=== PATIENT | female | born 1970 | race American Indian/Alaskan Native ===

== ENCOUNTER 2016-12-21 20:56 | Emergency (ER) | payer MEDICAID ==
[2016-12-21 20:57] VITALS: BMI 31.3
[2016-12-21 22:35] VITALS: RESP 18
[2016-12-21 22:52] LABS: RBC URINE 8 /hpf (0-3); URINE BACTERIA RARE (<OCC); URINE BILIRUBIN NEGATIVE (NEGATIVE); URINE BLOOD 1+ (NEGATIVE); URINE COLOR Yellow (YELLOW); URINE GLUCOSE (UA) NORMAL (Normal); URINE KETONE NEGATIVE (NEGATIVE); URINE LEUKOCYTE ESTERASE NEG Leu/uL (Negative); URINE PROTEIN NEGATIVE (NEGATIVE); WBC URINE 1 /hpf (0-5)
--- NOTE | 2016-12-21 23:44 | C.PDOC ---
Time Seen by Provider: 12/21/16 22:36 Chief Complaint (Nursing): Female Genitourinary History Per: Patient Onset/Duration Of Symptoms: Days (4) Current Symptoms Are (Timing): Still Present Severity: Moderate Location Of Pain/Discomfort: Suprapubic Quality Of Discomfort: Burning Associated Symptoms: Urinary Symptoms Exacerbating Factors: None Alleviating Factors: None Additional History Per: Prior Records Abnormal Vaginal Bleeding: No Past Medical History Reviewed: Historical Data, Nursing Documentation, Vital Signs Vital Signs: Last Vital Signs Temp 98.2 F 12/21/16 22:31 Pulse 83 12/21/16 22:31 Resp 18 12/21/16 22:31 BP 142/91 H 12/21/16 22:31 Pulse Ox 100 12/21/16 22:31 - Medical History PMH: Asthma Surgical History: No Surg Hx Family History: States: Unknown Family Hx - Social History Hx Tobacco Use: No Hx Alcohol Use: Yes Hx Substance Use: No - Immunization History Hx Tetanus Toxoid Vaccination: Yes Hx Influenza Vaccination: No Hx Pneumococcal Vaccination: Yes Review Of Systems Except As Marked, All Systems Reviewed And Found Negative. Constitutional: Negative for: Fever, Weakness Cardiovascular: Negative for: Chest Pain Respiratory: Negative for: Shortness of Breath Gastrointestinal: Negative for: Vomiting, Diarrhea Genitourinary: Positive for: Dysuria, Frequency. Negative for: Vaginal Discharge, Vaginal Bleeding Musculoskeletal: Negative for: Neck Pain, Back Pain Skin: Negative for: Rash Neurological: Negative for: Weakness, Numbness, Seizures, Altered Mental Status Physical Exam - Physical Exam Appears: Non-toxic, No Acute Distress Skin: Normal Color, Warm, Dry, No Rash Head: Atraumatic, Normacephalic Eye(s): bilateral: PERRL, EOMI Neck: Normal ROM, Supple Cardiovascular: Rhythm Regular Respiratory: Normal Breath Sounds, No Accessory Muscle Use Gastrointestinal/Abdominal: Soft, Tenderness (mild suprapubic), No Guarding, No Rebound Back: No CVA Tenderness Extremity: Normal ROM Neurological/Psych: Oriented x3, Normal Motor, Normal Sensation ED Course And Treatment - Laboratory Results Urine POC: Negative O2 Sat by Pulse Oximetry: 100 Pulse Ox Interpretation: Normal Disposition Counseled Patient/Family Regarding: Studies Performed, Diagnosis, Need For Followup, Rx Given - Disposition Referrals: [facility] at [facility] [Outside] Disposition: HOME/ ROUTINE Disposition Time: 23:44 Condition: STABLE Additional Instructions: Drink plenty of fluids. Follow up in the clinic. Return to the ER if you develop fever, vomiting, worsening of symptoms or if you have any other concerns. Prescriptions: Ciprofloxacin [Cipro] 250 mg PO BID #6 tab Instructions: Dysuria (ED) - Clinical Impression Clinical Impression: UTI symptoms
[2016-12-22 00:09] VITALS: BP 125/82; PULSE 69; TEMP 97.9; O2SAT 97
== END 2016-12-22 00:18 | disposition home or self-care (01) ==
LOC: C.ER 20:56
DX: N39.0 Urinary tract infection, site not specified (principal)

== ENCOUNTER 2017-05-07 13:47 | Emergency (ER) | payer MEDICAID ==
[2017-05-07 13:47] VITALS: BMI 31.3
[2017-05-07 14:13] VITALS: BP 159/89; PULSE 76; RESP 16; TEMP 98; O2SAT 98
[2017-05-07 14:35] LABS: RBC URINE 1 /hpf (0-3); URINE BILIRUBIN NEGATIVE (NEGATIVE); URINE BLOOD NEGATIVE (NEGATIVE); URINE COLOR Yellow (YELLOW); URINE GLUCOSE (UA) NORMAL (Normal); URINE KETONE NEGATIVE (NEGATIVE); URINE LEUKOCYTE ESTERASE TRACE Leu/uL (Negative); URINE PROTEIN NEGATIVE (NEGATIVE); WBC URINE 3 /hpf (0-5)
--- NOTE | 2017-05-07 14:58 | C.PDOC ---
History Of Present Illness 46 year old female presents to the ED for evaluation of nausea for the past several days. She additionally reports her menstrual cycle is late by several days. Pt states she has an appointment schedule with her PCP "soon". She reports some suprapubic pressure, but denies fever, vaginal discharge/bleeding, dysuria/ hematuria, abdominal pain, chest pain, SOB. Time Seen by Provider: 05/07/17 13:55 Chief Complaint (Nursing): Female Genitourinary History Per: Patient History/Exam Limitations: no limitations Onset/Duration Of Symptoms: Days Current Symptoms Are (Timing): Still Present Severity: Mild Past Medical History Reviewed: Historical Data, Nursing Documentation, Vital Signs Vital Signs: Last Vital Signs Temp 98 F 05/07/17 14:12 Pulse 76 05/07/17 14:12 Resp 16 05/07/17 14:12 BP 159/89 H 05/07/17 14:12 Pulse Ox 98 05/07/17 15:31 - Medical History PMH: Asthma Surgical History: No Surg Hx Family History: States: No Known Family Hx - Social History Hx Tobacco Use: No Hx Alcohol Use: Yes Hx Substance Use: No - Immunization History Hx Tetanus Toxoid Vaccination: Yes Hx Influenza Vaccination: No Hx Pneumococcal Vaccination: Yes Review Of Systems Except As Marked, All Systems Reviewed And Found Negative. Constitutional: Negative for: Fever, Chills Cardiovascular: Negative for: Chest Pain, Palpitations Respiratory: Negative for: Cough, Shortness of Breath Gastrointestinal: Positive for: Nausea. Negative for: Vomiting, Abdominal Pain , Diarrhea Genitourinary: Positive for: Other (suprapubic pressure). Negative for: Dysuria , Hematuria, Vaginal Discharge, Vaginal Bleeding Physical Exam - Physical Exam Appears: Well, Non-toxic, No Acute Distress Skin: Normal Color, Warm, Dry Oral Mucosa: Moist Cardiovascular: Rhythm Regular Respiratory: Normal Breath Sounds, No Rales, No Rhonchi, No Wheezing Gastrointestinal/Abdominal: Normal Exam, Bowel Sounds, Soft, No Tenderness Back: Normal Inspection, No CVA Tenderness Neurological/Psych: Oriented x3 ED Course And Treatment O2 Sat by Pulse Oximetry: 98 (RA) Pulse Ox Interpretation: Normal Progress Note: UA ordered and reviewed. UCx also sent. UA (-) for UTI, and Upreg POC (-). Patient denies abd pain, vaginal bleeding/discharge, concern for STDs. She is well appearing, and comfortable being discharged. She was instructed to follow up with upper cutter machine within 1 week, and understands she should return to ED if symptoms worsen. Medical Decision Making Medical Decision Making: Plan: -- Urine POC -- Urinalysis Time: 1500 Urine poc negative. Urinalysis shows no signs of infection. Pt stable for d/c home. Given prescription Zofran. Disposition Counseled Patient/Family Regarding: Studies Performed, Diagnosis, Need For Followup, Rx Given - Disposition Referrals: [facility] at [facility] [Outside] Disposition: HOME/ ROUTINE Disposition Time: 15:00 Condition: STABLE Additional Instructions: FOLLOW UP YOUR DOCTOR IN 1-2 DAYS USE MEDICATION FOR NAUSEA NEEDED RETURN TO EMERGENCY ROOM IF SYMPTOMS WORSEN Prescriptions: Ondansetron [Zofran Odt] 4 mg PO Q8 PRN #15 odt PRN Reason: Nausea/Vomiting Forms: [facility] (New Zealander), General Discharge Instructions Print Language: CHINESE - POA Present On Arrival: None - Clinical Impression Clinical Impression: Nausea - Scribe Statement The provider has reviewed the documentation as recorded by the Erica Beaulieu Provider Attestation: Provider Attestation: All medical record entries made by the Erica were at my direction and personally dictated by me. I have reviewed the chart and agree that the record accurately reflects my personal performance of the history, physical exam, medical decision making, and the department course for this patient. I have also personally directed, reviewed, and agree with the discharge instructions and disposition.
== END 2017-05-07 15:08 | disposition home or self-care (01) ==
LOC: C.ER 13:47
DX: R11.0 Nausea (principal)

== ENCOUNTER 2017-06-22 14:27 | Emergency (ER) | payer MEDICAID ==
[2017-06-22 14:27] VITALS: BMI 31.3
[2017-06-22 15:23] VITALS: BP 114/65; PULSE 59; TEMP 98.2; O2SAT 99
[2017-06-22 15:41] LABS: RBC URINE 1 /hpf (0-3); URINE BILIRUBIN NEGATIVE (NEGATIVE); URINE BLOOD NEGATIVE (NEGATIVE); URINE COLOR Yellow (YELLOW); URINE GLUCOSE (UA) NORMAL (Normal); URINE KETONE TRACE mg/dL (NEGATIVE); URINE LEUKOCYTE ESTERASE TRACE Leu/uL (Negative); URINE PROTEIN NEGATIVE (NEGATIVE); WBC URINE 4 /hpf (0-5)
--- NOTE | 2017-06-22 15:49 | C.PDOC ---
History Of Present Illness 46 y/o female presents to ED requesting a test and to evaluated for possible UTI. Patient states she has not had her menses in 2 months and believes she is . Denies fever, dysuria, abdominal pain, vomiting, vaginal discharge, vaginal bleeding or any other complaints at this time. Time Seen by Provider: 06/22/17 15:17 Chief Complaint (Nursing): Female Genitourinary History Per: Patient History/Exam Limitations: no limitations Onset/Duration Of Symptoms: Days Current Symptoms Are (Timing): Still Present Past Medical History Reviewed: Historical Data, Nursing Documentation, Vital Signs Vital Signs: Last Vital Signs Temp 98.2 F 06/22/17 15:18 Pulse 59 L 06/22/17 15:18 Resp 20 06/22/17 16:01 BP 114/65 06/22/17 15:18 Pulse Ox 99 06/22/17 20:28 - Medical History PMH: Asthma Surgical History: No Surg Hx Family History: States: No Known Family Hx - Social History Hx Tobacco Use: No Hx Alcohol Use: Yes Hx Substance Use: No - Immunization History Hx Tetanus Toxoid Vaccination: Yes Hx Influenza Vaccination: No Hx Pneumococcal Vaccination: Yes Review Of Systems Except As Marked, All Systems Reviewed And Found Negative. Constitutional: Negative for: Fever, Chills Cardiovascular: Negative for: Chest Pain Respiratory: Negative for: Shortness of Breath Gastrointestinal: Positive for: Abdominal Pain. Negative for: Nausea, Vomiting , Diarrhea Genitourinary: Negative for: Dysuria, Hematuria, Vaginal Discharge, Vaginal Bleeding Musculoskeletal: Negative for: Back Pain Skin: Negative for: Rash Physical Exam - Physical Exam Appears: Non-toxic, No Acute Distress Skin: Normal Color, Warm, Dry, No Rash Head: Atraumatic, Normacephalic Eye(s): bilateral: Normal Inspection, EOMI Nose: Normal Oral Mucosa: Moist Neck: Normal ROM, Supple Chest: Symmetrical Cardiovascular: Rhythm Regular, No Murmur Respiratory: Normal Breath Sounds, No Rales, No Rhonchi, No Wheezing Gastrointestinal/Abdominal: Soft, No Tenderness, No Guarding, No Rebound Neurological/Psych: Oriented x3, Normal Speech, Normal Cognition ED Course And Treatment O2 Sat by Pulse Oximetry: 99 (RA) Pulse Ox Interpretation: Normal Disposition - Disposition Disposition: HOME/ ROUTINE Disposition Time: 15:47 Condition: STABLE Additional Instructions: Follow up with primary medical doctor in 1-3 days without fail for further evaluation. Return to the emergency department at any time if symptoms persist or worsen. 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 - Scribe Statement The provider has reviewed the documentation as recorded by the Ghanshyamibyokasta Davila All medical record entries made by the Erica were at my direction and personally dictated by me. I have reviewed the chart and agree that the record accurately reflects my personal performance of the history, physical exam, medical decision making, and the department course for this patient. I have also personally directed, reviewed, and agree with the discharge instructions and disposition.
[2017-06-22 16:07] VITALS: RESP 20
== END 2017-06-22 16:01 | disposition home or self-care (01) ==
LOC: C.ER 14:27
DX: N91.2 Amenorrhea, unspecified (principal)

== ENCOUNTER 2017-09-24 09:09 | Emergency (ER) | payer MEDICAID ==
[2017-09-24 09:09] VITALS: BMI 28.1
[2017-09-24 09:16] VITALS: BP 134/96; PULSE 87; RESP 16; TEMP 98.1; O2SAT 99
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
== END 2017-09-24 09:36 | disposition home or self-care (01) ==
LOC: C.ER 09:09
DX: H92.01 Otalgia, right ear (principal)

== ENCOUNTER 2018-01-11 16:35 | Emergency (ER) | payer MEDICAID ==
[2018-01-11 16:35] VITALS: BMI 28.1
[2018-01-11 16:52] VITALS: TEMP 98.1
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
[2018-01-11 21:00] VITALS: BP 152/82; PULSE 74; RESP 16
[2018-01-11 21:31] VITALS: O2SAT 100
== END 2018-01-11 23:04 | disposition home or self-care (01) ==
LOC: C.ER 16:35
DX: T74.11XA Adult physical abuse, confirmed, initial encounter (principal); S00.83XA Contusion of other part of head, initial encounter; Y07.59 Other non-family member, perpetrator of maltreatment and neglect

== ENCOUNTER 2018-01-12 21:06 | Emergency (ER) | payer MEDICAID ==
[2018-01-12 21:06] VITALS: BMI 28.1
[2018-01-12 21:21] VITALS: BP 138/97; PULSE 82; RESP 16; TEMP 98; O2SAT 100
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
== END 2018-01-12 22:06 | disposition home or self-care (01) ==
LOC: C.ER 21:06
DX: H92.02 Otalgia, left ear (principal)

== ENCOUNTER 2018-03-03 14:45 | Emergency (ER) | payer MEDICAID ==
[2018-03-03 14:59] VITALS: BMI 29.7
[2018-03-03 15:01] VITALS: BP 124/81; PULSE 88; RESP 18; TEMP 98.9; O2SAT 99
[2018-03-03 15:46] LABS: SQUAMOUS EPITHIAL 5 /hpf (0-5); URINE BILIRUBIN NEGATIVE (NEGATIVE); URINE BLOOD NEGATIVE (NEGATIVE); URINE CLARITY Hazy (Clear); URINE COLOR Yellow (YELLOW); URINE GLUCOSE (UA) NORMAL (Normal); URINE LEUKOCYTE ESTERASE NEG Leu/uL (Negative); URINE PROTEIN NEGATIVE (NEGATIVE); URINE UROBILINOGEN NORMAL mg/dL (0.2-1.0)
--- NOTE | 2018-03-03 16:41 | C.PDOC ---
History Of Present Illness 47 y/o female presents to the ED stating she has urinary pressure after drinking out of a dirty cup found at [employer] today. No hematuria or frequency. Patient denies any associated fever, nausea, vomiting, or abdominal pain. Time Seen by Provider: 03/03/18 15:01 Chief Complaint (Nursing): Female Genitourinary History Per: Patient History/Exam Limitations: no limitations Onset/Duration Of Symptoms: Hrs Current Symptoms Are (Timing): Still Present Past Medical History Reviewed: Historical Data, Nursing Documentation, Vital Signs Vital Signs: Last Vital Signs Temp 98.9 F 03/03/18 14:58 Pulse 88 03/03/18 14:58 Resp 18 03/03/18 14:58 BP 124/81 03/03/18 14:58 Pulse Ox 99 03/03/18 16:41 - Medical History PMH: Asthma Denies: Chronic Kidney Disease Family History: States: Unknown Family Hx - Social History Hx Tobacco Use: Yes Hx Alcohol Use: No Hx Substance Use: No - Immunization History Hx Tetanus Toxoid Vaccination: Yes Hx Influenza Vaccination: Yes Hx Pneumococcal Vaccination: Yes Review Of Systems Except As Marked, All Systems Reviewed And Found Negative. Constitutional: Negative for: Fever, Chills Gastrointestinal: Negative for: Abdominal Pain Genitourinary: Positive for: Other (urinary pressure). Negative for: Dysuria, Frequency, Hematuria Musculoskeletal: Negative for: Back Pain Physical Exam - Physical Exam Appears: Well, Non-toxic, No Acute Distress Skin: Normal Color, Warm, Dry Head: Atraumatic, Normacephalic Eye(s): bilateral: Normal Inspection, PERRL, EOMI Nose: Normal Oral Mucosa: Moist Neck: Normal ROM, Supple Chest: Symmetrical Respiratory: No Accessory Muscle Use Gastrointestinal/Abdominal: Soft, No Tenderness, No Distention Extremity: Bilateral: Atraumatic, Normal Color And Temperature, Normal ROM Pulses: Left Dorsalis Pedis: Normal, Right Dorsalis Pedis: Normal Neurological/Psych: Oriented x3, Normal Speech, Normal Cranial Nerves, Normal Motor, Normal Sensation Gait: Steady ED Course And Treatment O2 Sat by Pulse Oximetry: 99 (RA) Pulse Ox Interpretation: Normal Medical Decision Making Medical Decision Making: Impression: 47 y/o F complaining of urinary pressure Plan: --Urine preg --Urinalysis --Urine culture Labs reviewed, urine is clear. Patient is stable for discharge home. Advised to follow up with PMD for further evaluation. Disposition Counseled Patient/Family Regarding: Studies Performed, Diagnosis, Need For Followup - Disposition Referrals: [facility], [Non-Staff] - Disposition: HOME/ ROUTINE Disposition Time: 13:15 Condition: GOOD Additional Instructions: LENO MART, thank you for letting us take care of you today. Your provider was Jeremy Durbin DO. The emergency medical care you received today was directed at your acute symptoms. If you were prescribed any medication, please fill it and take as directed. It may take several days for your symptoms to resolve. Return to the Emergency Department if your symptoms worsen, do not improve, or if you have any other problems. Please contact your doctor or call one of the physicians/clinics you have been referred to that are listed on the Patient Visit Information form that is included in your discharge packet. Bring any paperwork you were given at discharge with you along with any medications you are taking to your follow up visit. Our treatment cannot replace ongoing medical care by a primary care provider outside of the emergency department. Thank you for allowing the [facility] team to be part of your care today. You had a urine culture: It will take several days for the results, if any change in treatment is needed we will contact you. Follow up with your primary care doctor in 2-3 days for re-evaluation and further management. Forms: [facility] (Czech) - POA Present On Arrival: None - Clinical Impression Clinical Impression: Urinary frequency - Scribe Statement The provider has reviewed the documentation as recorded by the Scribe (Emerald Stephen) Provider Attestation: All medical record entries made by the Scribe were at my direction and personally dictated by me. I have reviewed the chart and agree that the record accurately reflects my personal performance of the history, physical exam, medical decision making, and the department course for this patient. I have also personally directed, reviewed, and agree with the discharge instructions and disposition.
== END 2018-03-03 16:11 | disposition home or self-care (01) ==
LOC: C.ER 14:45
DX: R35.0 Frequency of micturition (principal)

== ENCOUNTER 2018-05-11 10:49 | Emergency (ER) | payer MEDICAID ==
[2018-05-11 10:49] VITALS: BMI 29.7
[2018-05-11 11:06] VITALS: BP 127/90; PULSE 81; RESP 20; TEMP 98.4; O2SAT 100
--- NOTE | 2018-05-11 11:47 | C.PDOC ---
Time Seen by Provider: 05/11/18 11:10 Chief Complaint (Nursing): Headache Past Medical History Vital Signs: Last Vital Signs Temp 98.4 F 05/11/18 11:02 Pulse 81 05/11/18 11:02 Resp 20 05/11/18 11:02 BP 127/90 05/11/18 11:02 Pulse Ox 100 05/11/18 11:02 - Medical History PMH: Asthma Denies: Chronic Kidney Disease Family History: States: Unknown Family Hx - Social History Hx Tobacco Use: Yes Hx Alcohol Use: No Hx Substance Use: No - Immunization History Hx Tetanus Toxoid Vaccination: Yes Hx Influenza Vaccination: No Hx Pneumococcal Vaccination: No ED Course And Treatment O2 Sat by Pulse Oximetry: 100 Disposition Counseled Patient/Family Regarding: Studies Performed, Diagnosis, Need For Followup, Rx Given, Smoking Cessation - Disposition Referrals: [facility] at [facility] [Outside] Disposition: HOME/ ROUTINE Disposition Time: 11:45 Condition: GOOD Additional Instructions: Please follow up with Dr Alvarenga next week as scheduled; Recommend referral to neurology if symptoms do not resolve with Tylenol. Prescriptions: Acetaminophen [Tylenol 325mg tab] 650 mg PO Q4 #50 tab Forms: [facility] (Azeri), General Discharge Instructions - Clinical Impression Clinical Impression: Lt facial pain
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
== END 2018-05-11 11:50 | disposition home or self-care (01) ==
LOC: C.ER 10:49
DX: R51 Headache (principal); Z72.0 Tobacco use